=== PATIENT | female | born 1950 | race Caucasian/White ===

== ENCOUNTER 2020-06-17 16:26 | Emergency (ER) | payer OTHER, MEDICARE ==
[2020-06-17 16:35] VITALS: BP 150/97; PULSE 85; TEMP 98.8; BMI 19.8
--- NOTE | 2020-06-17 16:35 | PDOC ---
History of Present Illness - General Chief Complaint: Injury Stated Complaint: TWISTED RIGHT FOOT Time Seen by Provider: 06/17/20 16:32 - History of Present Illness Initial Comments: 06/17/20 17:07 Chief complaint: Right foot pain HPI: Immediately [employer], the patient was walking on the street and stumbled on a curb, sustaining an inversion injury to the right foot. She has pain and swelling over the fifth metatarsal base. Review of systems: Pain at the site. No other injuries. No pain or injury to the hip knee ankle or distal foot. No numbness tingling pain or weakness distal to the injury. No posterior calf pain. Past medical history: Reviewed and noncontributory to this injury. Fractured toe on the other foot, but no prior sprains or fractures on the right. Social/family history reviewed and noncontributory Physical exam: Alert and oriented well-developed well-nourished ambulating with a significant limp due to pain in the foot Afebrile, vital signs normal Right lower extremity: Tenderness over the base of the fifth metatarsal, mild to moderate swelling. No swelling of the ankle or forefoot. No point tenderness over the malleoli. No visible or palpable injury to the calf knee thigh or hip. Distal pulses full. No distal sensory or motor deficits. Impression: Probable fifth metatarsal fracture Plan: X-ray and further orthopedic management depending on results. Past History - Medical History Allergies/Adverse Reactions: Allergies Allergy/AdvReac Type Severity Reaction Status Date / Time Penicillins Allergy Intermediate Itching Verified 06/17/20 16:36 Sulfa (Sulfonamide Allergy Intermediate Swelling Verified 06/17/20 16:37 Antibiotics) Home Medications: Ambulatory Orders Raloxifene HCl [Evista (Nf) -] 60 mg PO DAILY 06/17/20 COPD: No Other medical history: DENIES - Psycho-Social/Smoking History Smoking History: Never smoked Information on smoking cessation initiated: No - Substance Abuse Hx (Audit-C & DAST Scrn) How often the patient has a drink containing alcohol: Never Score: In Men: 4 or > Positive; In Women: 3 or > Positive: 0 Screen Result (Pos requires Nsg. Audit-10AR): Negative In the last yr the pt used illegal drug/Rx for NonMed reason: No Score: Yes response is considered Positive: 0 Screen Result (Positive result requires Nsg. DAST-10): Negative *Physical Exam - Vital Signs Last Vital Signs Temp Pulse Resp BP Pulse Ox 98.8 F 85 16 150/97 99 06/17/20 16:27 06/17/20 16:27 06/17/20 16:27 06/17/20 16:27 06/17/20 16:27 Medical Decision Making - Medical Decision Making 06/17/20 17:43 X-ray reviewed: There is a transverse fracture of the base of the fifth metatarsal. This is a possible Ortiz type injury. Crutches and nonweightbearing until orthopedic follow-up. Ortiz dressing applied. Discharge - Discharge Information Problems reviewed: Yes Clinical Impression/Diagnosis: Fracture of fifth metatarsal bone of right foot Qualifiers: Encounter type: initial encounter Fracture type: closed Fracture alignment: nondisplaced Qualified Code(s): S92.354A - Nondisplaced fracture of fifth metatarsal bone, right foot, initial encounter for closed fracture Condition: Improved Disposition: HOME - Admission No - Follow up/Referral Referrals: Rex Fraser DO [Staff Physician] - 3 days - Patient Discharge Instructions Patient Printed Discharge Instructions: DI for Foot Fracture Additional Instructions: No weightbearing until orthopedic evaluation. Healing in this area is sometimes difficult and prolonged, and a specialist recommendation is necessary. Until then, use crutches or a cane to avoid bearing weight on the right foot. Advil or Aleve for pain and inflammation. Continue ice for 2 to 3 days intermittently. - Post Discharge Activity
== END 2020-06-17 18:02 | disposition home or self-care (01) ==
LOC: FER 16:26
DX: S92.354A Nondisplaced fracture of fifth metatarsal bone, right foot, initial encounter for closed fracture (principal)
CPT/HCPCS: 73630-TC-RT-FY; 99284-25